=== PATIENT | female | born 1995 | race Caucasian/White ===

== ENCOUNTER 2022-08-10 12:59 | Outpatient (CLI) | payer OTHER, SELFPAY ==
--- NOTE | 2022-08-10 13:00 | CRLHL7_ITS ---
For Patients: As a result of the Cures Act, medical imaging exams and procedure reports are released immediately into your electronic medical record. You may view this report before your referring provider. If you have questions, please contact your health care provider. INDICATION: First trimester scan, establish dates. COMPARISON: None. TECHNIQUE: Real-time fernando-scale imaging of the pelvis was performed. FINDINGS: Sonographic imaging demonstrates a single living intrauterine gestation. The embryo demonstrates a regular cardiac rate measuring 169 beats per minute. The embryo`s crown-rump length measurement of 1.5 cm corresponds to a gestational age of 7 weeks 6 days with a sonographic due date of March 23, 2023. There is a normal-appearing yolk sac measuring 2.9 mm. There are no gross abnormalities noted within the embryo at this early state of development. The placenta has not yet developed. The gestational sac has a normal appearance and there is no evidence of a perigestational hemorrhage. The amount of fluid within the sac appears appropriate for gestational age. The cervix is closed. The myometrium appears normal. The ovaries are of normal size. The right ovary measures 4.6 x 2.3 x 2.9 cm. The left ovary measures 4.6 x 2.7 x 2.8 cm. Small corpus luteum cyst of on the left. There are no suspicious fluid collections noted in the cul-de-sac. IMPRESSION: Normal first trimester OB ultrasound exam. Gestational age calculated at 7 weeks 6 days with a sonographic due date of March 23, 2023. Dictated by Clifton Ray MD @ 08/10/2022 3:04:47 PM (Electronically Signed)
== END 2022-08-10 13:00 | disposition home or self-care (01) ==
PROVIDERS: Visit Provider Obstetrics & Gynecology
DX: Z34.91 Encounter for supervision of normal pregnancy, unspecified, first trimester (principal); Z3A.01 Less than 8 weeks gestation of pregnancy
CPT/HCPCS: 76817

== ENCOUNTER 2022-08-10 14:47 | Outpatient (CLI) | payer OTHER, SELFPAY ==
[2022-08-10 17:18] LABS: Creatinine* 0.6 mg/dL (0.5-1.5); Estimated Glomerular Filt Rate 127 ml/min
[2022-08-10 17:19] LABS: Alanine Aminotransferase* 20 U/L (4-35); Aspartate Amino Transferase* 26 U/L (12-35)
[2022-08-10 17:30] LABS: Total Protein Urine 21 mg/dL
[2022-08-10 17:31] LABS: Creatinine Urine 58.6 mg/dL
[2022-08-10 17:49] LABS: Hepatitis B Surface Antigen* Negative (Negative)
[2022-08-10 17:57] LABS: HIV 1/2/P24 Combo Screen* Negative (Negative)
[2022-08-10 18:06] LABS: Hepatitis C Virus Antibody* Negative (Negative)
[2022-08-10 18:50] LABS: Chlamydia DNA Amplified* NOT DETECTED (No Detected); GC DNA Amplified* NOT DETECTED (No Detected)
[2022-08-13 00:12] LABS: Varicella-Zoster Virus Ab, IgG 90.5 IV
[2022-08-13 00:19] LABS: Rubella Antibody IgG 14.9 IU/mL
[2022-08-13 01:38] LABS: Rapid Plasma Reagin (RPR) Non Reactive (Non Reactive)
== END 2022-08-10 14:48 | disposition home or self-care (01) ==
PROVIDERS: Visit Provider Obstetrics & Gynecology
DX: O16.1 Unspecified maternal hypertension, first trimester (principal); Z3A.01 Less than 8 weeks gestation of pregnancy
CPT/HCPCS: 82565; 82570; 84156; 84450; 84460; 86592; 86703; 86762; 86787; 86803; 86850; 86900; 86901; 87086; 87340; 87491; 87591

== ENCOUNTER 2022-10-07 13:29 | Outpatient (CLI) | payer OTHER, SELFPAY | END 2022-10-07 13:30 | disposition home or self-care (01) | LOC: NFLDREF 10-09 14:37 | PROVIDERS: Visit Provider Obstetrics & Gynecology | DX: O16.2 Unspecified maternal hypertension, second trimester (principal); E10.9 Type 1 diabetes mellitus without complications; Z3A.16 16 weeks gestation of pregnancy | CPT/HCPCS: 82570; 84156 ==

== ENCOUNTER 2022-12-29 12:50 | Outpatient (CLI) | payer OTHER, SELFPAY ==
--- NOTE | 2022-12-29 13:00 | CRLHL7_ITS ---
For Patients: As a result of the Century Cures Act, medical imaging exams and procedure reports are released immediately into your electronic medical record. You may view this report before your referring provider. If you have questions, please contact your health care provider. INDICATION: Pre-existing hypertension. TECHNIQUE: Transabdominal obstetrical ultrasound. FINDINGS: Single living intrauterine in vertex presentation. Anterior placenta. heart rate 139 beats per minute. Normal amniotic fluid. Single deepest pocket measurement 5.4 cm. Biparietal diameter 7 cm, 28 weeks 2 days, 47th percentile. Head circumference 26.2 cm, 28 weeks 4 days, 35th percentile. Abdominal circumference 24 cm, 28 weeks 2 days, 53rd percentile. Femur length 5.1 cm, 27 weeks 3 days, 19th percentile. Composite calculated ultrasound age 28 weeks 1 day with a sonographic due date of March 22, 2023. Estimated weight 1162 g which lies at the 38th percentile. The head to abdominal circumference ratio is normal at 1.09 (1.02-1.21). IMPRESSION: Single living intrauterine in vertex presentation with an anterior placenta. Composite calculated ultrasound age 28 weeks 1 day with a sonographic due date of March 22, 2023. Estimated weight lies at the 38th percentile. Dictated by Clifton Ray MD @ 12/29/2022 4:06:09 PM (Electronically Signed)
== END 2022-12-29 12:51 | disposition home or self-care (01) ==
LOC: US 12:51
PROVIDERS: Visit Provider Obstetrics & Gynecology
DX: O10.913 Unspecified pre-existing hypertension complicating pregnancy, third trimester (principal); Z3A.28 28 weeks gestation of pregnancy
CPT/HCPCS: 76816

== ENCOUNTER 2023-01-02 15:29 | Outpatient (CLI) | payer OTHER, SELFPAY ==
[2023-01-02 15:38] VITALS: PULSE 86; O2SAT 98
[2023-01-02 15:42] VITALS: BP 135/65; PULSE 85
[2023-01-02 15:43] VITALS: PULSE 84; O2SAT 98
[2023-01-02 15:48] VITALS: PULSE 87; O2SAT 96
[2023-01-02 16:24] LABS: Appearance Urine Clear (Clear); Bilirubin Urine Negative (Negative); Blood Urine Negative (Negative); Color Urine Yellow (Yellow); Glucose Urine Negative (Negative); Ketones Urine 1+ (Negative); Leukocyte Esterase Urine Negative (Negative); Nitrite Urine Negative (Negative); Protein Urine Negative (Negative); Urobilinogen Urine 0.2 (0.2-1.0)
[2023-01-02 16:40] LABS: Clue Cells No Clue Cells Seen (None Seen); Trichomonas No Trichomonas Seen (None Seen); Yeast No Yeast Seen (None Seen)
== END 2023-01-02 16:09 | disposition home or self-care (01) ==
LOC: OB OUT 15:29 → OB 15:29
PROVIDERS: Visit Provider Obstetrics & Gynecology
DX: O10.913 Unspecified pre-existing hypertension complicating pregnancy, third trimester (principal); Z3A.28 28 weeks gestation of pregnancy
CPT/HCPCS: 59025; 81003; 87086; 87210; 99213

== ENCOUNTER 2023-01-13 12:47 | Outpatient (CLI) | payer OTHER, SELFPAY | END 2023-01-13 12:48 | disposition home or self-care (01) | LOC: NFLDREF 01-14 07:06 | PROVIDERS: Visit Provider Obstetrics & Gynecology | DX: O10.913 Unspecified pre-existing hypertension complicating pregnancy, third trimester (principal); O99.013 Anemia complicating pregnancy, third trimester; D50.9 Iron deficiency anemia, unspecified; Z3A.30 30 weeks gestation of pregnancy | CPT/HCPCS: 82565; 82570; 84156; 84450; 84460; 84520 ==

== ENCOUNTER 2023-01-29 13:01 | Outpatient (CLI) | payer OTHER, SELFPAY ==
--- NOTE | 2023-01-29 13:00 | CRLHL7_ITS ---
For Patients: As a result of the Century Cures Act, medical imaging exams and procedure reports are released immediately into your electronic medical record. You may view this report before your referring provider. If you have questions, please contact your health care provider. INDICATION: Pre-existing hypertension TECHNIQUE: Real time fernando scale imaging of the fetus was performed. COMPARISON: 12/29/2022 FINDINGS: Sonographic imaging demonstrates a single living intrauterine gestation. Fetus demonstrates a regular cardiac rate of 159 beats per minute. Fetus has a vertex position. The placenta lies anteriorly. Amniotic fluid volume appears normal and there is a single deepest pocket of 6.5 cm. The estimated weight is 2182gm which lies at the 71st %. On the prior OB ultrasound dated 12/29/2022 the estimated weight was at the 38th percentile. BPD 37th percentile. HC 32nd percentile. AC greater than 97th percentile. FL 8th percentile. The fetus was active and demonstrated normal breathing movements. There was normal flexion and extension of the trunk and extremities. IMPRESSION: Normal biophysical profile score 8/8. Sonographic gestational age 32 weeks 6 days and sonographic due date 03/20/2023. Good correlation with dates. Normal interval growth. Estimated weight 71st percentile. Abdominal circumference greater than 97th percentile. Dictated by Fahad Zayas MD @ 01/29/2023 2:42:46 PM (Electronically Signed)
== END 2023-01-29 13:02 | disposition home or self-care (01) ==
LOC: US 13:01
PROVIDERS: Visit Provider Obstetrics & Gynecology
DX: O10.913 Unspecified pre-existing hypertension complicating pregnancy, third trimester (principal); Z3A.32 32 weeks gestation of pregnancy
CPT/HCPCS: 76816; 76819

== ENCOUNTER 2023-01-29 14:33 | Outpatient (CLI) | payer OTHER, SELFPAY | END 2023-01-29 14:34 | disposition home or self-care (01) | PROVIDERS: Visit Provider Obstetrics & Gynecology | DX: Z34.93 Encounter for supervision of normal pregnancy, unspecified, third trimester (principal); Z3A.32 32 weeks gestation of pregnancy | CPT/HCPCS: 82565; 82570; 84156; 84450; 84460; 84520 ==

== ENCOUNTER 2023-02-03 23:15 | Outpatient (CLI) | payer OTHER, SELFPAY ==
[2023-02-03 23:28] VITALS: BP 146/72; PULSE 76
[2023-02-03 23:55] LABS: Clue Cells <20% Clue Cells Seen (None Seen); Trichomonas No Trichomonas Seen (None Seen); Yeast No Yeast Seen (None Seen)
[2023-02-04 00:03] LABS: Amnisure Rom* Negative
--- NOTE | 2023-02-04 00:54 | PC.OBNST ---
NST Note NST Note Start: 02/03/23 23:32 Freq: ONCE Status: Active Protocol: Document 02/04/23 00:52 AM (Rec: 02/04/23 00:54 AM [id number]) NST Note 1 Para (# of births) 0 EDC 03/23/23 Gestational Age In Weeks & Days 33 Weeks & 2 Days High Risk Factors High Blood Pressure - Preexisting,Diabetes - Preexisting Type I Insulin Patient Presented with Complaint(s) of Leaking fluid Reactive Yes Appropriate for Gestational Age Yes RN Kiko RNC Date 02/04/23 Reactive Yes Appropriate for Gestational Age Yes RN Amanda RN Date 02/04/23 OB NST charge Yes Complete NST Note via Write Note Yes The provider's electronic signature indicates the NST is reactive/appropriate for gestational age. *Note to provider: If an addendum is required, open the patient's chart and click on the note under the Nurse/Allied Health tab.
== END 2023-02-04 00:40 | disposition home or self-care (01) ==
LOC: OB OUT 23:15 → OB 23:16
PROVIDERS: Visit Provider Obstetrics & Gynecology
DX: Z34.93 Encounter for supervision of normal pregnancy, unspecified, third trimester (principal); Z3A.33 33 weeks gestation of pregnancy
CPT/HCPCS: 59025; 84112; 87210; 99213

== ENCOUNTER 2023-02-04 13:09 | Outpatient (CLI) | payer OTHER, SELFPAY ==
--- NOTE | 2023-02-04 13:00 | CRLHL7_ITS ---
For Patients: As a result of the Cures Act, medical imaging exams and procedure reports are released immediately into your electronic medical record. You may view this report before your referring provider. If you have questions, please contact your health care provider. BIOPHYSICAL PROFILE SCORE 02/04/2023 INDICATION: Pre-existing HTN and type I diabetes. FINDINGS: Total Score: 8/8. Gross Body Movements: 2. Tone: 2. Respiratory Activity: 2. Amniotic Fluid SDP: 2. IMPRESSION: Biophysical profile score 88. Trina Kwok M.D. Diagnostic/Breast Radiologist [email or web address]/[email or web address] / DW/Dictated by: Trina Kwok MD @ 02/06/2023 12:21:00 PM (Electronically Signed)
== END 2023-02-04 13:10 | disposition home or self-care (01) ==
LOC: US 13:09
PROVIDERS: Visit Provider Obstetrics & Gynecology
DX: O10.919 Unspecified pre-existing hypertension complicating pregnancy, unspecified trimester (principal)
CPT/HCPCS: 76819

== ENCOUNTER 2023-02-04 13:26 | Outpatient (CLI) | payer OTHER, SELFPAY | END 2023-02-04 13:27 | disposition home or self-care (01) | LOC: NFLDREF 02-06 12:46 | PROVIDERS: Visit Provider Obstetrics & Gynecology | DX: R80.9 Proteinuria, unspecified (principal) | CPT/HCPCS: 82570; 84156 ==

== ENCOUNTER 2023-02-19 12:55 | Outpatient (CLI) | payer OTHER, SELFPAY ==
--- NOTE | 2023-02-19 13:00 | CRLHL7_ITS ---
For Patients: As a result of the Century Cures Act, medical imaging exams and procedure reports are released immediately into your electronic medical record. You may view this report before your referring provider. If you have questions, please contact your health care provider. INDICATION: HTN, TYPE 1 DIABETES COMPARISON: 02/04/2023 TECHNIQUE: Real time fernando scale imaging of the fetus was performed. Without non-stress testing. FINDINGS: Sonographic imaging demonstrates a single living intrauterine gestation. Fetus demonstrates a regular cardiac rate of 144 beats per minute. Fetus has a vertex position. The amniotic fluid volume appears normal and there is a single deepest pocket measurement of 8.5 cm. TESHA 12.4 cm. The fetus was active and demonstrated normal breathing movements. There was normal flexion and extension of the trunk and extremities. IMPRESSION: Normal biophysical profile score of 8 out of 8. Dictated by Fahad Zayas MD @ 02/19/2023 2:24:12 PM (Electronically Signed)
== END 2023-02-19 12:56 | disposition home or self-care (01) ==
LOC: US 12:55
PROVIDERS: Visit Provider Obstetrics & Gynecology
DX: O10.913 Unspecified pre-existing hypertension complicating pregnancy, third trimester (principal); Z3A.35 35 weeks gestation of pregnancy
CPT/HCPCS: 76819

== ENCOUNTER 2023-02-19 13:46 | Outpatient (CLI) | payer OTHER, SELFPAY | END 2023-02-19 13:47 | disposition home or self-care (01) | LOC: NFLDREF 02-20 12:55 | PROVIDERS: Visit Provider Obstetrics & Gynecology | DX: O10.913 Unspecified pre-existing hypertension complicating pregnancy, third trimester (principal); Z3A.35 35 weeks gestation of pregnancy | CPT/HCPCS: 82565; 82570; 84156; 84450; 84460; 84520; 86592; 87081; 87653 ==

== ENCOUNTER 2023-02-24 12:56 | Outpatient (CLI) | payer OTHER, SELFPAY | END 2023-02-24 12:57 | disposition home or self-care (01) | PROVIDERS: Visit Provider Obstetrics & Gynecology | DX: O10.919 Unspecified pre-existing hypertension complicating pregnancy, unspecified trimester (principal); O24.419 Gestational diabetes mellitus in pregnancy, unspecified control; O98.519 Other viral diseases complicating pregnancy, unspecified trimester; U07.1 COVID-19; Z3A.00 Weeks of gestation of pregnancy not specified | CPT/HCPCS: 82565; 84450; 84460; 84520 ==

== ENCOUNTER 2023-02-24 13:41 | Outpatient (CLI) | payer OTHER, SELFPAY ==
--- NOTE | 2023-02-24 14:00 | CRLHL7_ITS ---
For Patients: As a result of the Century Cures Act, medical imaging exams and procedure reports are released immediately into your electronic medical record. You may view this report before your referring provider. If you have questions, please contact your health care provider. INDICATION: COVID positive, type 1 diabetes, pre-existing hypertension. COMPARISON: OB ultrasound 02/19/2023. TECHNIQUE: Ultrasound OB pelvis biophysical profile. Real time fernando scale imaging of the fetus was performed without non-stress testing. FINDINGS: Sonographic imaging demonstrates a single living intrauterine gestation. The fetus demonstrates a regular cardiac rate of 152 beats per minute. The fetus has a cephalic orientation. The placenta lies anteriorly. Amniotic fluid volume appears normal with single deepest pocket measuring 4.8 cm and the amniotic fluid index measuring 11.3 cm (2/2). The fetus was active (2/2). There was normal flexion and extension of the trunk and extremities (2/2). The fetus demonstrated normal breathing movements (2/2). IMPRESSION: Normal biophysical profile score 8 out of 8. Dictated by Daniella Matthew MD @ 02/24/2023 10:53:46 PM (Electronically Signed)
== END 2023-02-24 13:42 | disposition home or self-care (01) ==
PROVIDERS: Visit Provider Obstetrics & Gynecology
DX: O10.919 Unspecified pre-existing hypertension complicating pregnancy, unspecified trimester (principal); E10.9 Type 1 diabetes mellitus without complications; O98.513 Other viral diseases complicating pregnancy, third trimester; Z3A.36 36 weeks gestation of pregnancy
CPT/HCPCS: 76819

== ENCOUNTER 2023-03-01 15:54 | Inpatient (IN) | payer OTHER, SELFPAY ==
[2023-03-01] VITALS (9 sets, daily range): BP systolic 133–169; BP diastolic 60–78; PULSE 69–96; RESP 18; TEMP 36.8–37.3; O2SAT 99–100; BMI 35.5
[2023-03-01] MEDS: miSOPROStoL 25 MCG/0.25 TABLET VAGINAL (17:23)
--- NOTE | 2023-03-01 18:10 | P.LDBA_ITS ---
Subjective History of Present Illness Time Seen by Provider: 18:10 Date Seen: 03/01/23 Narrative: Patient is being admitted to Labor and Delivery for scheduled IOL due to chronic HTN difficult to control with multiple medication adjustments. She also had type I diabetes mellitus. She is a 27 year old at 36.6 weeks gestation. Her full history and physical was dictated by Dr. Willingham on 02/24/2023. Please see this for details. Specific Issues/Plans Spouse: Alan. Baby: Girl!. 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 ZION 03/23/2023 by IUI/conception date & first tri US 1. Type I DM * A1C 6.7 at [facility] * Qtrimester HgbA1C * 2nd trimester 10/07/22: Hgb A1C = 6.0% * Hb A1C = 6.1% on 01/13/23 * Managed by endocrinology with insulin pump and metformin. * MFM referral ordered on 09/07/22 * LVL 2 USN and echo scheduled with [facility] (see #3). * Monthly EFW starting at 28 weeks. * 01/29/2023: Cephalic, SDP 6.5 cm, EFW 71%, AC greater than 97%. * Twice weekly BPP starting at 32 weeks recommended. 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 2. Chronic hypertension with proteinuria * Patient has home blood pressure cuff, encouraged to check BID. * Previously on Enapril, off meds for a couple years * BP at 1st visit: 196/80 * Baseline preeclampsia labs: Plts 334, AST 26, ALT 20, urine P/C 0.3, * 16wks: 24 urine protein 10/08/22: 333.8mg * Nephrology referral placed 10/08/22: Patient declined (10/20/22) * Baby ASA daily * If BP not well controlled: twice weekly testing w/ twice wkly BPP & weekly pre-e labs start at 28wks. (Pt is declining increased surveillance until 32 weeks) * 09/07/2022: Labetalol 100mg: take 1/2 tab (50mg) BID, increased to 100 mg b.i.d. on 10/07/2022. Increased to 200 mg b.i.d. on 11/11/2022. * Home cuff calibrated on 10/07/2022. * Labetalol increased to 400 mg b.i.d. on 12/14, to 600 mg BID on 12/29/22. * US 28 weeks: cephalic, SDP 5.4 cm, FHR 139, EFW 38%, AC 53% * Adding Nifedipine 30 XL QD on 02/19/23 3. LVL 2 USN and consultation ealth/[facility] 10/20/22 * Echogenic bowel noted: Patient declined aneuploidy screening, antibody testing for CMV and screening for cystic fibrosis. * Recommended baseline EKG at her 20wk visit: Normal on 11/11/2022. * Titrate Labetalol to keep BP <140/90: [facility] recommended weekly visits for BP checks to titrate labetalol then every 2 weeks until 32 weeks then weekly until delivery: Patient declined. * echo scheduled at approximately 21wks: Patient canceled and did not reschedule. * 11/11/22: F/U from Lvl 2 UNS to assess anatomy suboptimally visualized: BR, EFW: 388gm = 34%. SDP 5.1cm. 4. 10/22/2022: Patient contacted triage through portal requesting hemoglobin due to extreme fatigue * TSH with reflex free T4 and CBC without diff ordered * 10/23/22 TSH: 1.090 * 10/23/22: hgb 10.9: recommended starting iron sulfate QOD. 5. Covid postitive 02/22/23. s/s started 02/19/23. Out of quarantine 03/01/23 OB - Problem Based A/P Additional Plan (1) Proteinuria: Problem details: 333.8 mg protein in 24 hour urine collection at 16 weeks gestation Status: Acute (2) Chronic hypertension affecting : Status: Acute (3) Type 1 diabetes mellitus: Problem details: Managed with an insulin pump and metformin by endocrinology Status: Acute Delivery/Labor/Induction Plan Plan: induction Induction method: per misoprostol protocol OB Exam Physical Exam Vital signs: Pulse BP Pulse Ox 82 148/77 H 99 03/01/23 16:45 03/01/23 16:45 03/01/23 16:24 Narrative: Physical exam: General: No acute distress Psych: Alert and oriented x3, full affect HEENT: Normocephalic, atraumatic Lungs: Unlabored breathing Neuro: No focal deficit. Mentating appropriately Abdomen: Gravid. Soft, nontender. No guarding or rebound. Pelvic exam: On my SVE: ft/50/ballotable, medium, posterior. Dry perineum.
--- NOTE | 2023-03-01 18:10 | W.PM.LDBA ---
Subjective History of Present Illness Time Seen by Provider: 18:10 Date Seen: 03/01/23 Narrative: Patient is being admitted to Labor and Delivery for scheduled IOL due to chronic HTN difficult to control with multiple medication adjustments. She also had type I diabetes mellitus. She is a 27 year old at 36.6 weeks gestation. Her full history and physical was dictated by Dr. Willingham on 02/24/2023. Please see this for details. Specific Issues/Plans Spouse: Alan. Baby: Girl!. 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 ZION 03/23/2023 by IUI/conception date & first tri US 1. Type I DM A1C 6.7 at [facility] Qtrimester HgbA1C 2nd trimester 10/07/22: Hgb A1C = 6.0% Hb A1C = 6.1% on 01/13/23 Managed by endocrinology with insulin pump and metformin. MFM referral ordered on 09/07/22 LVL 2 USN and echo scheduled with [facility] (see #3). Monthly EFW starting at 28 weeks. 01/29/2023: Cephalic, SDP 6.5 cm, EFW 71%, AC greater than 97%. Twice weekly BPP starting at 32 weeks recommended. 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 2. Chronic hypertension with proteinuria Patient has home blood pressure cuff, encouraged to check BID. Previously on Enapril, off meds for a couple years BP at 1st visit: 196/80 Baseline preeclampsia labs: Plts 334, AST 26, ALT 20, urine P/C 0.3, 16wks: 24 urine protein 10/08/22: 333.8mg Nephrology referral placed 10/08/22: Patient declined (10/20/22) Baby ASA daily If BP not well controlled: twice weekly testing w/ twice wkly BPP & weekly pre-e labs start at 28wks. (Pt is declining increased surveillance until 32 weeks) 09/07/2022: Labetalol 100mg: take 1/2 tab (50mg) BID, increased to 100 mg b.i.d. on 10/07/2022. Increased to 200 mg b.i.d. on 11/11/2022. Home cuff calibrated on 10/07/2022. Labetalol increased to 400 mg b.i.d. on 12/14, to 600 mg BID on 12/29/22. US 28 weeks: cephalic, SDP 5.4 cm, FHR 139, EFW 38%, AC 53% Adding Nifedipine 30 XL QD on 02/19/23 3. LVL 2 USN and consultation ealth/[facility] 10/20/22 Echogenic bowel noted: Patient declined aneuploidy screening, antibody testing for CMV and screening for cystic fibrosis. Recommended baseline EKG at her 20wk visit: Normal on 11/11/2022. Titrate Labetalol to keep BP <140/90: [facility] recommended weekly visits for BP checks to titrate labetalol then every 2 weeks until 32 weeks then weekly until delivery: Patient declined. echo scheduled at approximately 21wks: Patient canceled and did not reschedule. 11/11/22: F/U from Lvl 2 UNS to assess anatomy suboptimally visualized: BR, EFW: 388gm = 34%. SDP 5.1cm. 4. 10/22/2022: Patient contacted triage through portal requesting hemoglobin due to extreme fatigue TSH with reflex free T4 and CBC without diff ordered 10/23/22 TSH: 1.090 10/23/22: hgb 10.9: recommended starting iron sulfate QOD. 5. Covid postitive 02/22/23. s/s started 02/19/23. Out of quarantine 03/01/23 OB - Problem Based A/P Additional Plan (1) Proteinuria: Problem details: 333.8 mg protein in 24 hour urine collection at 16 weeks gestation Status: Acute (2) Chronic hypertension affecting : Status: Acute (3) Type 1 diabetes mellitus: Problem details: Managed with an insulin pump and metformin by endocrinology Status: Acute Delivery/Labor/Induction Plan Plan: induction Induction method: per misoprostol protocol OB Exam Physical Exam Vital signs: Pulse BP Pulse Ox 82 148/77 H 99 03/01/23 16:45 03/01/23 16:45 03/01/23 16:24 Narrative: Physical exam: General: No acute distress Psych: Alert and oriented x3, full affect HEENT: Normocephalic, atraumatic Lungs: Unlabored breathing Neuro: No focal deficit. Mentating appropriately Abdomen: Gravid. Soft, nontender. No guarding or rebound. Pelvic exam: On my SVE: ft/50/ballotable, medium, posterior. Dry perineum.
[2023-03-01 18:46] LABS: Hematocrit 33.5 % (33.0-51.0); Hemoglobin* 10.6 gm/dL (12.0-16.0); Mean Corpuscular Volume 75 fL (80-100); Red Blood Count 4.49 m/uL (4.00-5.20)
[2023-03-01 18:47] LABS: Eosinophils Percent Auto 0.1 % (0.0-7.0); Lymphocytes Percent Auto 16.5 % (20-44); Mean Corpuscular HGB Conc 32 gm/dL (32-36); Mean Corpuscular Hemoglobin 24 pg (26-34); Neutrophils Percent Auto 75.6 % (42.0-72.0); Platelet Count* 255 K/uL (140-440)
[2023-03-01 18:48] LABS: Slide Review Reflex No
[2023-03-01] MEDS: LACTATED RINGERS 1000 ML 1,000 ML 500 ML IV (21:25)
[2023-03-01] MEDS: LACTATED RINGERS 1000 ML 1,000 ML 125 ML IV (22:43)
[2023-03-02] VITALS (20 sets, daily range): BP systolic 104–168; BP diastolic 56–85; PULSE 64–93; RESP 16–18; TEMP 36.6–37.3; O2SAT 97–99
[2023-03-02] MEDS: miSOPROStoL 25 MCG/0.25 TABLET VAGINAL ×2 (00:28→04:22)
[2023-03-02] MEDS: MORPHINE 10 MG/ML inj IM (02:38)
[2023-03-02] MEDS: LACTATED RINGERS 1000 ML 1,000 ML 525 ML IV (04:06)
[2023-03-02] MEDS: LACTATED RINGERS 1000 ML 1,000 ML 1200 ML IV (07:06)
[2023-03-02] MEDS: LIDOCAINE 1 % PF 30 ML INJECTION (08:21)
[2023-03-02] MEDS: OXYTOCIN 30 unit/500 ML in NS 30 UNIT/500 ML BAG 300 UNIT IVPB (08:23)
--- NOTE | 2023-03-02 09:18 | W.PM.VAGD1_ITS ---
Procedure Delivery date: 03/02/23 Procedure Done: [employer] Procedure Details: The patient is a 27 year-old G 1 P 0 woman admitted on 03/01/2023 at 36 Weeks, 6 Days gestation for cervical ripening prior to anticipated induction of labor the following day.? Cervical exam on admission was ft/50/ballotable, medium, posterior with membranes intact in vertex presentation.? SROM occurred at 6:30 a.m. with clear fluid. ? Labor Analgesia:? None ? Pitocin:? No ? Labor onset:? 6:30 a.m. ? Complete:? 7:45 a.m. ? Pushing:? 7:45 a.m. ? heart tones during second stage were notable for recurrent deep variable decelerations. Sue was initially in hands and knees position. She was given oxygen by face mask and her position was changed twice, with no in during improvement in heart tones. Pelvic exam at this time revealed vertex to be at the introitus with pushing. OA presentation was noted on vaginal exam. Her most recent ultrasound gave a normal EFW. I discussed the use of vacuum assisted vaginal delivery to Sue, along with episiotomy, as ways to precipitate vaginal delivery. Verbal consent was given. Her bladder was drained of a scant amount of urine via straight catheterization. The kiwi firm cup vacuum was placed anteriorly at the flexion point. The vacuum was not well applied on the 1st placement, and little to no actual traction was obtained. It was then repositioned with a good seal. Just before the 2nd placement, I performed an episiotomy with scalpel in a right mediolateral orientation. With her next push, I was prepared to apply traction on the vacuum, but she delivered infant had without any traction after the episiotomy. Vacuum cup suction was released. There was nuchal cord x1, which was reduced. Infant then delivered in REGLA presentation and was passed maternal abdomen. Cord was doubly clamped and cut. Infant was passed off to attending licensed occupational therapy assistant. Time of was 8:20 a.m.. was female, with Apgars of 4, 7 and 8, weight 6 lb, 7 oz. ? Placenta delivered spontaneously and complete at 8:33 a.m. with a 3 vessel cord. ? Mother and infant were stable after delivery. ? Lacerations:? Second-degree perineal laceration/right mediolateral episiotomy without extension, in addition to a briskly bleeding but small and shallow laceration along the left periurethral region. These were infiltrated with a total of 20 mL of 1% lidocaine. The second-degree perineal laceration was repaired with 2-0 Vicryl in the usual fashion. The periurethral laceration was repaired with 2 interrupted sutures of 3-0 Vicryl. Vaginal packing was placed given the continued oozing of the laceration sites. ? Blood loss: 1128 mL. Blood loss measurement type: QBL ? Sponge and needles counts are correct.
[2023-03-02 09:41] LABS: Basophils Percent Auto 0.2 % (0.0-3.0); Hemoglobin* 10.1 gm/dL (12.0-16.0); Immature Granulocytes Pct Auto 0.2 %; Lymphocytes Percent Auto 4.9 % (20-44); Mean Corpuscular HGB Conc 32 gm/dL (32-36); Mean Corpuscular Hemoglobin 23 pg (26-34); Mean Corpuscular Volume 74 fL (80-100); Monocytes Percent Auto 4.1 % (0.0-11.0); Neutrophils Percent Auto 90.6 % (42.0-72.0); Platelet Count* 258 K/uL (140-440); RDW Coefficient of Variation % 14.9 % (11.5-15.5); Red Blood Count 4.34 m/uL (4.00-5.20); White Blood Count* 19.25 K/uL (4.50-11.00)
[2023-03-02] MEDS: LABETALOL HCL 100 MG TABLET 600 MG PO (09:45)
[2023-03-02 09:47] LABS: Slide Review Reflex No
[2023-03-02 10:26] LABS: INR 1.01 (0.91-1.10); Prothrombin Time 13.9 Seconds
[2023-03-02 10:27] LABS: Fibrinogen* 497 mg/dL (200-450); Partial Thromboplastin Time* 27 Seconds (23-33)
--- NOTE | 2023-03-02 12:32 | PM.OBPNVD1 ---
OB - PN:Subj Subjective Time Seen by Provider: 12:20 Date Seen: 03/02/23 Interval history: I left vaginal packing in place to provide pressure on perineal and periurethral lacerations that I repaired. Patient voided, and the packing did not come out. I then removed the packing. The packing was saturated, and there was an abundant amount of lochia just behind this in the vaginal vault. However, further examination revealed that the laceration sites were intact and hemostatic. The perineum appeared bruised, and I recommended ice pack. CBC and coags were stable. At 9:23 a.m., hemoglobin is 10.1, down from 10.6 yesterday evening. Platelets 258. INR and APTT normal. Fibrinogen 492. OB - PN: Obj Exam Physical Exam: Vital signs: Temp Pulse Resp BP Pulse Ox 98.9 F 78 18 134/72 100 03/02/23 06:30 03/02/23 10:28 03/02/23 06:30 03/02/23 10:28 03/01/23 19:16 OB - PN: Obj Data Labs Labs: Laboratory Results - last 24 hr 03/01/23 03/02/23 17:50 09:23 WBC 10.30 19.25 H RBC 4.49 4.34 Hgb 10.6 L 10.1 L Hct 33.5 32.0 L MCV 75 L 74 L MCH 24 L 23 L MCHC 32 32 RDW Coeff of Yuri 14.9 Plt Count 255 258 Neut % (Auto) 75.6 H 90.6 H Lymph % (Auto) 16.5 L 4.9 L [place] % (Auto) 6.0 4.1 Eos % (Auto) 0.1 0.0 Baso % (Auto) 0.0 0.2 Neut # (Auto) 7.80 H 17.40 H Lymph # (Auto) 1.70 0.90 [place] # (Auto) 0.60 0.80 Eos # (Auto) 0.00 0.00 Baso # (Auto) 0.00 0.00 Abs Immat Gran (auto) 0.00 Imm/Tot Granulo (auto) 0.2 INR 1.01 APTT 27 Fibrinogen 497 H Blood Type O Positive Antibody Screen NEGATIVE OB - PN: A/P Delivery Assessment and Plan (1) Proteinuria: Problem details: 333.8 mg protein in 24 hour urine collection at 16 weeks gestation Status: Acute (2) Chronic hypertension affecting : Status: Acute (3) Type 1 diabetes mellitus: Problem details: Managed with an insulin pump and metformin by endocrinology Status: Acute Plan Plan: routine care Comments: Hb in AM
[2023-03-02] MEDS: ACETAMINOPHEN 500 MG TABLET 1000 MG PO ×2 (13:10→18:56)
[2023-03-02 16:10] LABS: Basophils Percent Auto 0.1 % (0.0-3.0); Hematocrit 27.5 % (33.0-51.0); Hemoglobin* 8.7 gm/dL (12.0-16.0); Immature Granulocytes Pct Auto 0.1 %; Lymphocytes Percent Auto 7.1 % (20-44); Mean Corpuscular HGB Conc 32 gm/dL (32-36); Mean Corpuscular Hemoglobin 24 pg (26-34); Mean Corpuscular Volume 74 fL (80-100); Monocytes Percent Auto 3.9 % (0.0-11.0); Neutrophils Percent Auto 88.8 % (42.0-72.0); Platelet Count* 252 K/uL (140-440); RDW Coefficient of Variation % 15.2 % (11.5-15.5); Red Blood Count 3.71 m/uL (4.00-5.20); White Blood Count* 20.76 K/uL (4.50-11.00)
[2023-03-02 16:11] LABS: Slide Review Reflex No
--- NOTE | 2023-03-02 18:40 | PC.NURSE ---
Pt using own insulin pump and given orders based on her endocrinologists recomenedations. Per pt, orders for post- Medication management are as followed. Pt using Humalog U200 insulin. Basal rate 1 unit/hr with a correction of 1 unit of insulin per [address] Garibay notified of endocrinologists recommendation, no new orders.
--- NOTE | 2023-03-02 18:43 | PC.NURSE ---
At approximately 1430, pt reporting that her blood sugar is at 186. Pt stated, I'm working on getting it down and I can manage it. I'm really not worried about it. RN recommended to record home insulin Pump use on [facility] approved form. Pt stated, I am going to decline doing that, because I'm really not concerned. I switched back to my orders and I'll figure it out. RN notified Dr Garibay that patient would like us to not give her direction of use of insulin pump and will not record her insulin use while in hospital.
[2023-03-02] MEDS: METFORMIN ER 500 MG 1000 MG PO (18:51)
[2023-03-03] VITALS (10 sets, daily range): BP systolic 109–126; BP diastolic 66–81; PULSE 85–98; RESP 14–18; TEMP 36.3–37; O2SAT 97–98
[2023-03-03] MEDS: ACETAMINOPHEN 500 MG TABLET 1000 MG PO ×2 (04:27→14:04)
[2023-03-03 07:00] LABS: Hemoglobin* 7.6 gm/dL (12.0-16.0)
[2023-03-03] MEDS: IBUPROFEN 600 MG TABLET PO ×2 (09:39→17:41)
[2023-03-03] MEDS: LABETALOL HCL 100 MG TABLET 300 MG PO ×2 (09:40→20:45)
[2023-03-03] MEDS: ENALAPRIL MALEATE 10 MG TABLET 5 MG PO (09:43)
[2023-03-03] MEDS: METFORMIN ER 500 MG 1000 MG PO ×2 (09:44→18:15)
--- NOTE | 2023-03-03 11:10 | PM.OBPNVD1 ---
OB - PN:Subj Subjective Time Seen by Provider: 07:30 Date Seen: 03/03/23 Interval history: The patient feels regular.?She can feel her hemoglobin being low, she is feeling fatigued, a bit lightheaded last night. Hemoglobin this morning low at 7.6mg/dL. The pain is well controlled with current medications.?Urinary output is adequate and she is voiding without difficulty.? Has a good appetite, is tolerating a general diet, is passing flatus, and has not had a bowel movement.? Has small amount of rubra lochia.? She is ambulating okay, but fatigued and a bit lightheaded. She is but states that baby has not been staying latched for too long. Blood pressures have been normal, not severely elevated. 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 States that BS overnight where more on the lower side, she has kept adjusting her insulin levels. Patient prefers to move with blood transfusion. OB - PN: Obj Exam Physical Exam: Vital signs: Temp Pulse Resp BP Pulse Ox O2 Del Method 98.3 F 85 16 113/74 97 Room Air 03/03/23 10:42 03/03/23 10:42 03/03/23 10:42 03/03/23 10:42 03/03/23 10:42 03/02/23 23:51 Narrative: VITAL SIGNS: As noted above. GENERAL APPEARANCE: Alert, cooperative female in no acute distress. MOOD & AFFECT: Normal. ABDOMEN: Soft, non-distended and appropriately tender, uterus well contracted at the umbilicus. : Small amount of lochia. EXTREMITIES: Nonedematous. Well perfused. Nontender. OB - PN: Obj Data Labs Labs: Laboratory Results - last 24 hr 03/01/23 03/02/23 03/03/23 17:50 16:05 06:36 WBC 20.76 H RBC 3.71 L Hgb 8.7 L 7.6 L* Hct 27.5 L MCV 74 L MCH 24 L MCHC 32 RDW Coeff of Yuri 15.2 Plt Count 252 Neut % (Auto) 88.8 H Lymph % (Auto) 7.1 L [place] % (Auto) 3.9 Eos % (Auto) 0.0 Baso % (Auto) 0.1 Neut # (Auto) 18.40 H Lymph # (Auto) 1.50 [place] # (Auto) 0.80 Eos # (Auto) 0.00 Baso # (Auto) 0.00 Abs Immat Gran (auto) 0.00 Imm/Tot Granulo (auto) 0.1 Blood Type O Positive Antibody Screen NEGATIVE Crossmatch (AHG) See Detail OB - PN: A/P Delivery Assessment and Plan (1) Chronic hypertension affecting : Status: Acute Assessment and Plan: Blood pressure is under control, we will plan to start tapering down labetalol. Will decrease to labetalol 300 mg twice a day. We will start enalapril 5 mg daily. Continue close monitoring of vital signs. (2) Type 1 diabetes mellitus: Problem details: Managed with an insulin pump and metformin by endocrinology Status: Acute Assessment and Plan: Continue close observation and insulin titration as per endocrinology recommendations. (3) Iron deficiency anemia: Status: Acute Assessment and Plan: Symptomatic anemia, hemoglobin this morning 7.6 mg/dL. Patient agrees to blood transfusion, will transfuse 1 unit. Will plan to repeat hemoglobin tomorrow morning. Plan Plan: routine care
--- NOTE | 2023-03-03 18:37 | PC.NURSE ---
RN informed pt of collecting intake and output. Pt declined. RN informed pt of reasoning for collection of intake and output and signs to be aware of for fluid retention.
[2023-03-04] VITALS (10 sets, daily range): BP systolic 113–144; BP diastolic 67–86; PULSE 78–92; RESP 16–18; TEMP 36.6–37.1; O2SAT 96–98
[2023-03-04] MEDS: ACETAMINOPHEN 500 MG TABLET 1000 MG PO ×4 (01:57→22:53)
[2023-03-04 06:39] LABS: Hemoglobin* 7.6 gm/dL (12.0-16.0)
[2023-03-04] MEDS: METFORMIN ER 500 MG 1000 MG PO ×2 (08:17→18:27)
[2023-03-04] MEDS: DOCUSATE SODIUM 100 MG CAPSULE PO (10:57)
[2023-03-04] MEDS: LABETALOL HCL 100 MG TABLET 300 MG PO ×2 (10:57→20:49)
[2023-03-04] MEDS: ENALAPRIL MALEATE 10 MG TABLET 5 MG PO (11:00)
--- NOTE | 2023-03-04 12:24 | PM.OBPNVD1 ---
OB - PN:Subj Subjective Date Seen: 03/04/23 Interval history: Patient received 1 unit of packed red blood cells in transfusion yesterday and felt her symptoms improved afterwards, however he hemoglobin this morning is again 7.6. She also feels that her symptoms have slightly worsened and after discussion of the risks and benefits would like to proceed with a 2nd unit of red blood cell transfusion. Her pain is well controlled with current medications.?Urinary output is adequate and she is voiding without difficulty.? Has a good appetite, is tolerating a general diet, is passing flatus, and has had a bowel movement.?She is ambulating okay, but does feel some dizziness. She is but states that baby has not been staying latched for too long. Blood pressures have been normal range. No headache, blurriness or spots in vision, upper abdominal pain. After adjustment yesterday blood sugars were slightly higher but she is continuing to improve her control . OB - PN: Obj Exam Physical Exam: Vital signs: Temp Pulse Resp BP Pulse Ox O2 Del Method 98.1 F 92 18 128/85 96 Room Air 03/04/23 04:11 03/04/23 08:22 03/04/23 08:22 03/04/23 08:22 03/04/23 08:22 03/04/23 08:22 Constitutional: Constitutional: no acute distress Comments: Pale Routine Cardiovascular Exam: Cardiovascular: Present RRR Routine Abdominal Exam: Abdominal: Present distended and soft; Absent rebound or tenderness Fundus: Present firm Routine Extremities Exam: Extremities: Present pedal edema OB - PN: Obj Data Labs Labs: Laboratory Results - last 24 hr 03/01/23 03/04/23 17:50 06:05 Hgb 7.6 L* Crossmatch (AHG) See Detail OB - PN: A/P Delivery Assessment and Plan (1) Chronic hypertension affecting : Problem details: Blood pressures in normal range Status: Acute Assessment and Plan: Continue labetalol 300 mg twice daily and enalapril 5 mg daily (2) Type 1 diabetes mellitus: Problem details: Managed with an insulin pump and metformin by endocrinology Status: Acute (3) Iron deficiency anemia: Problem details: Secondary to hemorrhage. Status post 1 unit red blood cells, no change in hemoglobin over 24 hours, likely fluid shifts. Patient continues to feel symptomatic Status: Acute Assessment and Plan: Another 1 unit red blood cell transfusion (4) hemorrhage: Problem details: Resolved with uterotonics medications Status: Acute Plan day: 2 Plan: routine care Comments: Discharge home tomorrow due to persistent anemia requiring red blood cell transfusion and observation
[2023-03-04] MEDS: IBUPROFEN 600 MG TABLET PO (17:09)
[2023-03-05] MEDS: ACETAMINOPHEN 500 MG TABLET 1000 MG PO ×2 (05:57→13:19)
[2023-03-05 06:46] VITALS: BP 118/78; PULSE 78; RESP 16; TEMP 36.6; O2SAT 99
[2023-03-05] MEDS: DOCUSATE SODIUM 100 MG CAPSULE PO (07:56)
[2023-03-05] MEDS: METFORMIN ER 500 MG 1000 MG PO (07:56)
[2023-03-05] MEDS: IBUPROFEN 600 MG TABLET PO (07:56)
--- NOTE | 2023-03-05 08:36 | P.DS_ITS ---
DS: Providers Provider Date Seen: 03/05/23 Date of admission: 03/01/23 15:54 Primary care physician: Not a Local Provider Admitting Clinician: Merry Kaur MD Attending Physician on discharge: Merry Kaur MD Date of Discharge: 03/05/23 DS: Diagnosis Discharge Diagnosis (1) hemorrhage: Status: Acute Problem details: Resolved with uterotonic medications (2) Iron deficiency anemia: Status: Acute Problem details: Secondary to hemorrhage. Status post 2 units red blood cells, symptoms improved (3) Chronic hypertension affecting : Status: Acute Problem details: Blood pressures in normal range on labetalol 300 mg daily and enalapril 5 mg daily, asymptomatic (4) PCOS (polycystic ovarian syndrome): Status: Acute (5) Type 1 diabetes mellitus: Status: Acute Problem details: Managed with an insulin pump and metformin by endocrinology Exam Const: Vital Signs, click to edit/add: Vital Signs - 24 hr 03/04/23 10:57 03/04/23 14:19 03/04/23 14:30 Temperature 98.4 F 98.4 F Pulse Rate 92 92 Pulse Rate [Pulse Oximeter] Respiratory Rate 18 18 Blood Pressure 133/79 133/79 Blood Pressure [Le ft Arm] 118/76 Pulse Oximetry 98 98 Oxygen Delivery Me thod 03/04/23 14:45 03/04/23 15:30 03/04/23 16:16 Temperature 98.6 F 98.7 F 98.5 F Pulse Rate 78 88 78 Pulse Rate [Pulse Oximeter] Respiratory Rate 18 16 18 Blood Pressure 140/83 H 137/83 130/86 Blood Pressure [Le ft Arm] Pulse Oximetry 98 98 98 Oxygen Delivery Me thod 03/04/23 17:04 03/04/23 19:56 03/05/23 06:46 Temperature 98.2 F 97.9 F 97.8 F Pulse Rate 92 Pulse Rate [Pulse Oximeter] 84 78 Respiratory Rate 18 16 16 Blood Pressure 136/70 Blood Pressure [Le ft Arm] 144/84 H 118/78 Pulse Oximetry 98 96 99 Oxygen Delivery Me thod Room Air Room Air Common normals: no apparent distress and oriented x3 General appearance: cooperative and comfortable Resp: Common normals: normal respiratory effort Effort & inspection: able to speak in complete sentences GI: Inspection: abdominal distension Percussion: tympanic to percussion Other: Fundus firm below umbilicus Neuro: Common normals: oriented x3 Speech: speech normal Gait (neuro): normal gait Psych: Common normals: mental status grossly normal OB - DS: Summary Hospital Course Hospital Course: The patient is a 27 year old G 1 P 0 at 36w6 gestation that was admitted to the Center on 03/01/23 for induction of labor secondary to chronic hypertension difficult to control on oral medications. She had an complicated vaginal delivery by hemorrhage. She delivered a viable female . She is breast and bottle feeding. the patient has improved, was initially symptomatic with anemia and hemoglobin of 7.6, and overall received 2 units red blood cell transfusion with a marked improvement in symptoms. Blood pressures remained in the normal range on labetalol and enalapril. Patient managed her own insulin pump and blood sugars were initially low, then high, and by discharge have improved. She is ambulating without difficulty, voiding spontaneously, lochia minimal, and pain controlled on oral pain medications. Peripartum Data Infant delivery method: Vacuum Laceration description: Periurethral - 2nd Degree complications: transfusion and uterine atony [place] Infant Gender: Female Discharge Plan: Home Time Spent with Patient Time attestation: Total time spent providing and/or coordinating discharge services: Time spent: Greater than 30 minutes Discharge Plan Discharge Disposition: Home, Self-Care Date of Admission: 03/01/23 15:54 Attending Provider on Discharge: Sudheer Us Primary Care Provider: Provider,Not a Local Condition: Stable Anticipated Discharge Date/Time: 03/05/23 11:44 Discharge Medications: New enalapril maleate 10 mg Tablet 5 mg PO DAILY 90 Days Qty: 90 0RF acetaminophen 500 mg Tablet 1,000 mg PO Q6H PRNQty: 30 0RF docusate sodium 100 mg Capsule 100 mg PO DAILY Qty: 30 0RF ibuprofen 600 mg Tablet 600 mg PO Q6H PRNQty: 30 0RF Continued (DME) Blood Pressure Cuff Misc See Rx Instructions .Route Qty: 1 0RF Rx Instructions: As directed Humalog KwikPen Insulin 200 unit/mL (3 mL) insulin pen 1 sliding scale dose subcut PRN Patient Comments: INJECT UP TO 160 UNITS SUBCUTANEOUSLY ONCE DAILY metformin 500 mg tablet extended release 24 hr 1,000 mg PO BID prenat.vits,anabel,[id number]-cvrjy Tablet 1 tab PO QDAY cholecalciferol (vitamin D3) 50 mcg (2,000 unit) capsule 50 mcg PO QDAY ferrous gluconate 225 mg (27 mg iron) tablet 225 mg PO QMWF Qty: 30 0RF Changed labetalol 300 mg tablet 300 mg PO BID 60 Days Qty: 120 0RF Discontinued nifedipine 30 mg tablet extended release 30 mg PO QDAY Qty: 30 1RF Discharge Orders: Discharge Order (Routine); Ordered 03/05/23 Ordered By: Sudheer Us Patient Education: OB [place] [facility], OB Over the Counter Medication Information, OB Vaginal/Breast Feeding Activity Detail: Nothing in the vagina for 6 weeks: No sex, no tampons, use a pad only Discharge Diet: Regular and Diabetic Follow Up Appointments: Provider,Not a Local [Primary Care Provider] - Merry Kaur MD [Staff Physician] - Forms: [employer] Info Instructions DS:Data Additional Comments Additional comments: Hemoglobin 7.6 prior to 2nd transfusion of RBCs, no further hemoglobins collected due to patient's improved symptoms and normal vital signs
[2023-03-05] MEDS: ENALAPRIL MALEATE 10 MG TABLET 5 MG PO (10:30)
[2023-03-05] MEDS: LABETALOL HCL 100 MG TABLET 300 MG PO (10:30)
[2023-03-05 10:36] VITALS: BP 143/83
[2023-03-05 15:09] VITALS: BP 138/83; PULSE 83; RESP 16; TEMP 36.8; O2SAT 97
== END 2023-03-05 15:41 | disposition home or self-care (01) | DRG 806 ==
PROVIDERS: Obstetrics & Gynecology; Admitting Provider Obstetrics & Gynecology; Visit Provider Obstetrics & Gynecology
DX: O11.4 Pre-existing hypertension with pre-eclampsia, complicating childbirth (principal); D62 Acute posthemorrhagic anemia; Z37.0 Single live birth; O98.513 Other viral diseases complicating pregnancy, third trimester; O10.92 Unspecified pre-existing hypertension complicating childbirth; O24.02 Pre-existing type 1 diabetes mellitus, in childbirth; Z79.84 Long term (current) use of oral hypoglycemic drugs; Z79.4 Long term (current) use of insulin; O70.1 Second degree perineal laceration during delivery; O72.1 Other immediate postpartum hemorrhage; O90.81 Anemia of the puerperium; O99.284 Endocrine, nutritional and metabolic diseases complicating childbirth; E28.2 Polycystic ovarian syndrome; Z86.16 Personal history of COVID-19; Z3A.36 36 weeks gestation of pregnancy
CPT/HCPCS: 36415; 36430; 59200; 85018; 85025; 85384; 85610; 85730; 86850; 86900; 86901; 86922; 88307; A9270; J2001; J2270; J7120; P9016

== ENCOUNTER 2023-03-24 13:10 | Outpatient (CLI) | payer OTHER, SELFPAY ==
--- NOTE | 2023-03-24 17:00 | P.LACCB_ITS ---
Consult Note - Mom Date of Visit Date of visit: 03/24/23 managing consultant: Neema Alejandre Visit Code: Visit Patient's Information Phone number: [phone] : 1 Para: 1 Allergies shellfish derived Allergy (Severe, Verified 03/01/23 20:40) Mother's Medical History: Medical History (Updated 03/13/23 @ 00:01 by Background Daemon) Chronic hypertension affecting ?O10.919 - Unspecified pre-existing hypertension complicating , unspecified trimester (ICD-10) History of hypertension ?Z86.79 - Personal history of other diseases of the circulatory system (ICD- 10) PCOS Type I DM PPH and received 2 units PRBC's Delivery Information Delivery type: Vaginal Weeks Gestation: 37.0 Gestational Age: AGA Weight: 2.744 kg Baby's Information Baby's Age at Visit: 3 weeks Baby's Provider or Clinic: Dr. Velasquez Jaundice: No Reason for Consult Reason for Consult: slow weight gain Past Experience Past Experience: No Current Frequency of Day Feedings: about every 2 - 3 hours around the clock Both Breasts: Yes Suck: strong with a nipple shield Latch: wide Length of Time: 20 - 30 minutes Goals: would like to wean from the nipple shield and be able to stop supplementing Pumping Pumping: Yes (BID) Quantity Pumped: 3 - 4 oz total Supplementing EMB Supplement: Yes Baby Elimination Number of Wet Diapers a Day: about 8 times/day Number of BM a Day: once/day Breast/Nipple Condition Breast Information: WNL Maternal Nipple Condition - Left: Common Nipple and Short Maternal Nipple Condition - Right: Common Nipple and Short Sore Nipples: No Onsite Pre-Feed weight: 3.01 kg Post-Feed weight: 3.072 kg Milk Transferred (mL): 62 Pre-Nursing Left Nipple: Within Normal Limits Pre-Nursing Right Nipple: Within Normal Limits Post-Nursing Left Nipple: Within Normal Limits Post-Nursing Right Nipple: Within Normal Limits Assessments/Interventions Assessments/Interventions: Met with mom and this now 3 week old ex- term AGA baby for consult. Per PCP note and mom baby has been very slow to gain weight. Mom has been nursing with a nipple shield every 2 - 3 hours around the clock and then supplementing with EBM after daytime feedings. At baby's last visit with PCP on 03/19 POC were instructed to continue supplementing but to do it overnight as well. Mom reports baby started spitting up more so she and dad are now supplementing with 1 - 1.5 oz after every other feeding. Mom pumps BID with her [place] pump and gets 3 - 4 oz total each time, but uses her [place] several times/day and gets about 2 oz total each time. Breasts WNL- symmetrical with rounded lower quadrants, intramammary distance < 1.5 inches. Nipples are somewhat short but everted and don't flatten or retract on compression, no damage noted. Baby has gained 26 grams/day since her last visit on 03/19. Mom denies any caput/cephalohematoma at delivery and thinks baby has equal ROM when turning her head and moving her extremities. Her upper frenulum is tight as her lip is difficult to flange and her gums shanti, no suck blister noted. Baby has a strong suck on a finger but her tongue slips back behind the gum line; there's some canoeing with lateralization. The lower frenulum wasn't visualized, posterior? Mom latched baby to the left side using the nipple shield. Baby had a wide latch, swallowing was heard. After about 15 minutes she came off and was weighed, she transferred 30 ml. Mom latched baby to the right side, starting with the shield but then taking it off after a few minutes. The latch looked wide, mom reported a fairly strong pulling sensation, and baby stayed latched (mom said at home when she tries to nurse without the shield baby can't maintain the latch). After baby came off the right side she was weighed but had only transferred 10 ml. Mom reapplied the shield and let baby nurse on that side again and she transferred another 22 ml for a total of 62 ml. Milk was seen in the shield both times. Mom was shown a few exercises to hopefully help baby extend her tongue over the gumline and an O ball was suggested. Plan: 1. Suggested mom continue to nurse on demand but baby should have at least 8 feedings in 24 hours. Continue to offer both sides and ok to try without a nipple shield once/day. 2. Suggested mom use her [place] to pump BID and to use her [place] if she ever has a feeding where milk isn't in the shield. Can also continue to use the [place], but to let baby have both sides first. 3. Reviewed that babies her age need 3 - 4 oz/feeding. If she's taking about 2 oz from the breast, she needs at least one more oz after all feedings. 4. Try the tongue exercises 3 - 5 times/day. 5. Will f/u on 04/07/23 for another pre and post feeding weight. Meds Home Medications and Allergies Home Medications Medication Instructions Recorded Confirmed Type cholecalciferol (vitamin D3) 50 50 mcg PO QDAY 08/10/22 03/01/23 History mcg (2,000 unit) capsule insulin lispro 200 unit/mL (3 mL) 1 sliding scale dose subcut PRN 08/10/22 03/01/23 History subcutaneous pen (Humalog KwikPen U-200 Insulin) metformin 500 mg tablet,extended 1,000 mg PO BID 08/10/22 03/01/23 History release 24 hr prenat.vits,anabel,aai-ahzh-ittbe 1 tab PO QDAY 08/10/22 03/01/23 History Allergies Allergy/AdvReac Type Severity Reaction Status Date / Time shellfish derived Allergy Severe Verified 03/01/23 20:40
== END 2023-03-24 13:11 | disposition home or self-care (01) ==
PROVIDERS: Visit Provider Obstetrics & Gynecology
DX: Z39.1 Encounter for care and examination of lactating mother (principal)
CPT/HCPCS: 99211

== ENCOUNTER 2023-11-11 14:32 | Outpatient (CLI) | payer OTHER, SELFPAY | END 2023-11-11 14:33 | disposition home or self-care (01) | LOC: FRMREF 14:33 | PROVIDERS: Visit Provider Registered Nurse | DX: R03.0 Elevated blood-pressure reading, without diagnosis of hypertension (principal); D50.9 Iron deficiency anemia, unspecified; E10.9 Type 1 diabetes mellitus without complications; Z13.9 Encounter for screening, unspecified | CPT/HCPCS: 84443 ==

== ENCOUNTER 2024-07-21 08:47 | Outpatient (CLI) | payer MEDICAID, SELFPAY | END 2024-07-21 08:48 | disposition home or self-care (01) | LOC: FRMREF 08:47 | PROVIDERS: Visit Provider Obstetrics & Gynecology | DX: E10.9 Type 1 diabetes mellitus without complications (principal); E28.2 Polycystic ovarian syndrome; N91.1 Secondary amenorrhea | CPT/HCPCS: 84443 ==

== ENCOUNTER 2024-11-27 15:03 | Outpatient (CLI) | payer BC, SELFPAY | END 2024-11-27 15:04 | disposition home or self-care (01) | LOC: NFLDREF 12-01 08:56 | PROVIDERS: Visit Provider Obstetrics & Gynecology | DX: N97.0 Female infertility associated with anovulation (principal) | CPT/HCPCS: 84144 ==

== ENCOUNTER 2025-01-05 08:11 | Outpatient (CLI) | payer BC, SELFPAY ==
--- NOTE | 2025-01-05 08:15 | CRLHL7_ITS ---
For Patients: As a result of the Century Cures Act, medical imaging exams and procedure reports are released immediately into your electronic medical record. You may view this report before your referring provider. If you have questions, please contact your health care provider. INDICATION: 29 year-old female. First trimester scan, establish dates. COMPARISON: None. TECHNIQUE: Real-time fernando-scale imaging of the pelvis was performed transvaginally. FINDINGS: Sonographic imaging demonstrates a single living intrauterine gestation. The embryo demonstrates a regular cardiac rate measuring 173 beats per minute. The embryo`s crown-rump length measurement of 1.6 cm corresponds to a gestational age of 8 weeks 0 days with a sonographic due date of August 17, 2025. There is a normal-appearing yolk sac measuring 3.9 mm. There are no gross abnormalities noted within the embryo at this early state of development. The placenta has not yet developed. The gestational sac has a normal appearance and there is no evidence of a perigestational hemorrhage. The amount of fluid within the sac appears appropriate for gestational age. The cervix is closed. The myometrium appears normal. The left ovary is not visualized. The right ovary measures 5.3 x 3.3 x 3.1 cm. The right ovary contains a small corpus luteum cyst measuring 2.7 x 1.8 x 2.1 cm. There are no suspicious fluid collections noted in the cul-de-sac. IMPRESSION: Normal first trimester OB ultrasound exam. Gestational age calculated at 8 weeks 0 days with a sonographic due date of August 17, 2025. Dictated by Clifton Ray MD @ 01/09/2025 12:06:41 PM (Electronically Signed)
== END 2025-01-05 08:12 | disposition home or self-care (01) ==
LOC: US 08:11
PROVIDERS: Visit Provider Physician Assistant
DX: Z34.91 Encounter for supervision of normal pregnancy, unspecified, first trimester (principal); Z3A.08 8 weeks gestation of pregnancy
CPT/HCPCS: 76817; 82565; 82570; 83021; 84450; 84460; 84520; 86592; 86703; 86704; 86706; 86762; 86787; 86803; 86850; 87086; 87340

== ENCOUNTER 2025-02-01 11:15 | Outpatient (CLI) | payer BC, SELFPAY | END 2025-02-01 11:16 | disposition home or self-care (01) | LOC: NFLDREF 11:16 | PROVIDERS: Visit Provider Obstetrics & Gynecology | DX: O10.911 Unspecified pre-existing hypertension complicating pregnancy, first trimester (principal); Z3A.12 12 weeks gestation of pregnancy | CPT/HCPCS: 82570; 84156 ==

== ENCOUNTER 2025-02-07 15:00 | Outpatient (CLI) | payer BC, SELFPAY | END 2025-02-07 15:01 | disposition home or self-care (01) | LOC: NFLDREF 02-09 18:03 | PROVIDERS: Visit Provider Obstetrics & Gynecology | DX: O10.911 Unspecified pre-existing hypertension complicating pregnancy, first trimester (principal); Z3A.12 12 weeks gestation of pregnancy | CPT/HCPCS: 82570; 84156 ==

== ENCOUNTER 2025-03-16 10:44 | Outpatient (CLI) | payer BC, SELFPAY ==
--- NOTE | 2025-03-16 11:15 | CRLHL7_ITS ---
For Patients: As a result of the Century Cures Act, medical imaging exams and procedure reports are released immediately into your electronic medical record. You may view this report before your referring provider. If you have questions, please contact your health care provider. OB ULTRASOUND FOLLOW-UP/LIMITED CLINICAL HISTORY: No FHT. TECHNIQUE: Real time fernando scale imaging of the fetus was performed. Transabdominal imaging performed. FINDINGS: LMP: 11/07/2024. ZION by LMP: 08/14/2025. GA: 18 weeks 3 days. Gestation: Single. Cervix: Not visualized. Positioning: Vertex. Amniotic Fluid: 3.7 cm SDP. Placenta: Technique: TA. Placenta Position: Fundal. Dopplers: Heart Rate: 0 bpm. BIOMETRY BPD: 3.8 cm, 17 weeks 4 days. 16% HC: 14.6 cm, 17 weeks 5 days. 13% AC: 10.8 cm, 16 weeks 5 days. 5% FL: 2.2 cm, 16 weeks 5 days. <3% FL/AC Ratio: 20.84% HC/AC Ratio: 1.35. EFW: 169.95. 0 lb 6 oz. Age by this US: 17 weeks 1 day. ZION by this US: 08/23/2025. Percentile by ZION: <3% IMPRESSION: Intrauterine demise measures 17 weeks 1 day. No heart tones are present. No hemorrhage. Fahad Zayas M.D. Diagnostic Radiologist [email or web address] Transcribed: 11:49 am DW/Dictated by: Fahad Zayas MD @ 03/16/2025 11:42:00 AM (Electronically Signed)
== END 2025-03-16 10:45 | disposition home or self-care (01) ==
LOC: US 10:45
PROVIDERS: Visit Provider Obstetrics & Gynecology
DX: O20.0 Threatened abortion (principal); O36.4XX0 Maternal care for intrauterine death, not applicable or unspecified; Z3A.18 18 weeks gestation of pregnancy
CPT/HCPCS: 76815

== ENCOUNTER 2025-03-17 21:39 | Inpatient (IN) | payer BC, SELFPAY ==
[2025-03-17] VITALS (11 sets, daily range): BP systolic 137–197; BP diastolic 70–91; PULSE 77–97; TEMP 36.7; O2SAT 98; BMI 35.3
[2025-03-17] MEDS: LABETALOL HCL 100 MG TABLET 200 MG PO (17:05)
--- NOTE | 2025-03-17 17:28 | PM.OBHPLI ---
OB - H&P: HPI Labor/Induction History of Present Illness Time Seen by Provider: 17:30 Date Seen: 03/17/25 Chief Complaint: IUFD IOL Chief complaint: Maternity Narrative: Delayed documentation due to patient cares. Patient was admitted on 03/17. Sue is a 29 year old 2 para 1 at 18w4d GA by LMP diagnosed with missed by formal US yesterday where fetus measures 17w1d GA. is complicated by DM1, uncontrolled chronic HTN (on labetolol 200mg BID), history of complicated by PPH (requiring blood transfusion), secondary infertility, PCOS (conceived on letrozole), anemia. Patient was counseled on her options of management of 2nd trimester demise, she was undecided on 03/16 after counseling. Patient of the like all the [facility] this morning, noting she would like to proceed with induction and was planning to do so on Wednesday. Later in the day, she called again reporting some cramping and back pain. On arrival, patient is well-appearing. She does note some intermittent low back pain that radiates around her size to her from abdomen. She denies any cramping abdominal pain, slight vaginal pressure. She denies any fever/chills, nausea/vomiting, abnormal vaginal discharge or malodor. No vaginal bleeding or leaking of fluids. Patient manages her diabetes with a insulin pump and continuous glucose monitor. Her basal rate is 5.5 units/hour of Humalog presently. CGM data reviewed, where she has spent 79% of time at goal (60-180) in the last 2 weeks, 4% with hypoglycemia values and 21% high values (>=180mg/dL). She does not have any signs or symptoms to suggest DKA at this time. Alisha has had a a upper respiratory infection, which peaked but 2 weeks ago. She does continue to have a lingering cough. She was evaluated in urgent care, where she was treated with zithromax for walking pneumonia. Her coughing persists, where she was started on nebulizer treatmes for an otherwise unsubstantiated diagnosis of asthma. She denies any known history of reactive airway disease or former diagnosis of asthma. CXR on 03/16 was negative for any acute findings - lungs and pleural spaces clear. Trace atelectasis in left lower lobe. Specific Issues/Plans Partner: Alan Daughter: Nancy Rivera [employer] in [place]. IUFD diagnosed 03/16. Considering options of IOL vs referral for D&E. # chronic hypertension Baseline pre E labs: hgb 12.9, plts 253K, BUN 9, creat 0.5, AST 23, ALT 14. Urine P/C 02/07/25: 0.12 24hr urine for protein 02/07/25: 211.5mg Elevated reading at new OB, elevated readings at home: Labetalol 100 mg b.i.d. initiated 01/22 02/01: Labetalol 200 mg b.i.d. Aspirin 81 mg Weekly testing starting at 32 weeks: Growth ultrasound every 4 weeks starting at 28 weeks: # type 1 diabetes 02/07: Endocrin f/u, Dr. Feliz Kaur, [facility]: Continue Tresiba insulin 60U daily, continue insulin pump therapy (using U200 insulin). Discussed the use of metformin in the 2nd and 3rd trimester to assist with insulin resistance. Follow-up in 2 months: Hemoglobin A1c every trimester First: 7.6% 2nd: 3rd: Level 2 ultrasound: referral placed echo: [] Twice weekly testing starting at 32 weeks Ultrasound for EFW every 4 weeks starting at 28 weeks # history of vacuum assisted vaginal delivery # history of hemorrhage with transfusion of blood products # obesity, BMI 35.0 # conceived with letrozole # varicella nonimmune Vaccinate #HepB nonimmune: discussed on 02/01/25, booster Imaging: [Summary of level II or follow up US here; BPP scores not necessary] Vaccinations: COVID: [] Flu: [] Tdap: [] RSV: [] 32 week mental health: [] Last pap: 11/11/23 Meds Home Medications and Allergies Home Medications ?Medication ?Instructions ?Recorded ?Confirmed ?Type miscellaneous medical supply #1 ea 02/19/23 03/16/25 Rx (Blood Pressure Cuff) [id number] 3 fatty no.1 27 cap PO 01/05/25 03/16/25 History mg-1 mg-300 mg capsule insulin degludec 100 unit/mL (3 70 unit subcut QDAY 01/05/25 03/16/25 History mL) subcutaneous pen (Tresiba FlexTouch U-100 insulin) insulin lispro 200 unit/mL (3 mL) 70 unit (0.35 mL) subcut QACBREAK 01/11/25 03/16/25 Rx subcutaneous pen (Humalog KwikPen #6 mL U-200 Insulin) blood pressure kit-extra large #1 ea 01/19/25 03/16/25 Rx labetalol 200 mg tablet 200 mg PO BID #180 tabs 02/01/25 03/16/25 Rx labetalol 300 mg tablet 300 mg PO TID #90 tabs 03/16/25 03/16/25 Rx Allergies Allergy/AdvReac Type Severity Reaction Status Date / Time shellfish derived Allergy Severe Verified 03/16/25 09:33 OB - H&P: Exam Physical Exam: Vital signs: Pulse BP Pulse Ox 90 158/71 H 98 03/17/25 17:02 03/17/25 17:02 03/17/25 16:47 Narrative: Vital signs. Initial blood pressures were markedly elevated at 197/90 and 168/75 on 2 minute recheck. 15 minutes later, her BP was out of the severe range at 158/71. Labetolol 200mg was administered, with interval improvement. General: Alert and oriented, no acute distress Psych: Appropriate mood and affect. Grieving appropriately. Heart: Regular rate and rhythm Lungs: Clear to posterior auscultation Abdomen: Soft, nondistended, fundus palpates just below umbilicus. Nontender to palpation throughout. No rebound or guarding. Cervix: Closed by Rn exam OB - Problem Based A/P Additional Plan (1) demise: Status: Acute (2) URI (upper respiratory infection): Status: Acute (3) IUFD at less than 20 weeks of gestation: Status: Acute (4) History of pre-eclampsia in prior , currently : Status: Acute (5) Type 1 diabetes mellitus affecting , antepartum: Status: Acute (6) Chronic hypertension affecting : Status: Acute (7) Infertility associated with anovulation: Status: Acute Plan Sue is a 29 year old 2 para 1 at 18w4d GA by LMP diagnosed with missed by formal US on 03/16 where fetus measures 17w1d GA. is complicated by DM1, uncontrolled chronic HTN (on labetolol 200mg BID), history of complicated by PPH (requiring blood transfusion), secondary infertility, PCOS (conceived on letrozole), anemia. Patient was counseled on her options of induction of labor versus D&E by Dr. Garibay on 03/16. She was undecided initially, then presented to care on 03/17 with some low back pain that radiates to her abdomen and vaginal pressure. Patient is overall well appearing, afebrile on presentation. She has marked hypertension on arrival, which did improve with a period of rest. We resumed her home labetalol 200 mg TID, later did increase the dose to labetalol 300 mg t.i.d.. Patient is not tachycardic. Abdominal exam is negative for any tenderness (specifically no fundal tenderness), rebound or guarding. Cervical exam was performed by nurses, noted to be closed. Patient is denying any infectious symptoms such as fever/chills, nausea/vomiting, abnormal vaginal discharge or malodor. She is not experiencing any significant contractions at this time, aside from the description of low back pain that wraps around to her abdomen. No vaginal bleeding or leaking of fluid. [place] monitoring was completed, no contractions detected. Comprehensive lab evaluation was completed, including a CBC, CMP, coags, UDS. White blood cell count of 13.99, likely physiologic in the state of . Glucose of 133, creatinine 0.5, AST 21, ALT 12. Anion gap is 10. Recommended viral panel to evaluate for potential flow/open, patient declined. Explained from a safety perspective, we need to achieve better control of Sue's BP due to significant chronic hypertension exacerbation. Explained there are no signs/symptoms to suggest preeclampsia (headache, vision changes, right upper quadrant pain) in this would be highly unlikely at her early gestational age. Diligent blood pressure monitoring ongoing. Plan to treat any sustained severe range blood pressures with short-acting antihypertensive medications. If needed, we will continue to increase her long-acting antihypertensive regimen as well. With regard to diabetes, Sue strongly desires to continue to honestly manage her insulin and blood glucose. She utilizes a continuous glucose monitor and insulin pump, where basal rate is 5.5 units/hour Humalog. Her recent glycemic control is adequate. As such, I am comfortable with this. Explained that we may need to alter her regimen in the setting of uncontrolled hyperglycemia or hypoglycemia or in the perioperative phase. I again counseled Sue about her options for management. Explained the respective risks and benefits of dilation and evacuation versus induction of labor. Explained we could only offer her an induction of labor here, where referral for D and E would be placed. From a safety perspective, I explained that she is at an increased risk of bleeding in the setting of an IUFD (which can be associated with coagulopathy, coags negative on admission however) as well as her history of a hemorrhage that required blood transfusion. Type and screen obtained, cross-matched patient for 2 units packed red blood cells. Explained induction would include vaginal Cytotec for up to 6 doses, followed by high-dose Pitocin if needed. After delivery, we would proceed with IV Pitocin to encourage delivery of the placenta followed by Hemabate or Cytotec if placenta failed to deliver. Patient does not truly have a known history of asthma, however we will reassess if Hemabate were to be required given her recent upper respiratory infection where she was prescribed a nebulizer. Explained that the risk of retained placenta is estimated to be about 20% with a Cytotec induction in the 2nd trimester, where D&C would be required. We did review potential risks of suction D&C specifically as well, including bleeding, infection, damage to surrounding structures (uterus, tubes, ovaries, bowel, bladder, blood vessels), perforation, intrauterine scarring. I explained that altogether, data would suggest D&E is associated with less obstetrics complications. After counseling, she wishes to proceed with 2nd trimester IOL here. With regard IUFD evaluation, she would like all testing to be completed. APLS labs are pending, plan culture of placenta/membranes, genetic evaluation. Fetus and placental tissues to be sent for pathologic evaluation. - Start IOL with 400mcg cytotec PV q3-4 hours up to 6 doses. IOL would continue with pitocin PRN. - Of note, IOL was started several hours later due to emergencies on the unit - Continue to monitoring for signs/symptoms of intrauterine infection or bleeding, evaluation reassuring at this time - T/S on file, 2u cross matched for pRBCs - Pain control per patient preference and anesthesia - Extensive counseling on risks/benefits completed - Bereavement cares ongoing - Diligent monitoring of BP ongoing - plan as noted above. Current antihypertensive regimen is labetolol 300mg TID.
[2025-03-17 17:50] LABS: Hematocrit* 36.5 % (33.0-51.0); Hemoglobin* 12.0 gm/dL (12.0-16.0); Immature Granulocytes Pct Auto 0.2 %; Mean Corpuscular HGB Conc 33 gm/dL (32-36); Mean Corpuscular Hemoglobin 25 pg (26-34); Mean Corpuscular Volume 75 fL (80-100); RDW Coefficient of Variation % 13.6 % (11.5-15.5); Red Blood Count* 4.85 m/uL (4.00-5.20); White Blood Count* 13.99 K/uL (4.50-11.00)
[2025-03-17 17:57] LABS: Immature Granulocytes Abs Auto 0.00 K/uL (0.00-0.30); Lymphocytes Absolute Auto 2.10 K/uL (0.90-2.90); Slide Review Reflex No
[2025-03-17 18:00] LABS: Albumin* 4.0 g/dL (3.3-5.0); Chloride* 106 mmol/L (96-114); Potassium* 3.7 mmol/L (3.6-5.1); Sodium* 135 mmol/L (135-149)
[2025-03-17 18:03] LABS: Alanine Aminotransferase* 12 U/L (4-35); Alkaline Phosphatase* 64 U/L (40-150); Anion Gap 10 mEq/L (7-15); Aspartate Amino Transferase* 21 U/L (12-35); Bilirubin Total* 0.3 mg/dL (0.1-1.5); Blood Urea Nitrogen* 7 mg/dL (5-24); Carbon Dioxide* 19 mmol/L (20-32); Creatinine* 0.5 mg/dL (0.5-1.5); Estimated Glomerular Filt Rate 131 ml/min; INR 1.00 (0.91-1.10); Prothrombin Time 14.0 Seconds; Total Protein* 7.2 g/dL (6.0-8.3)
[2025-03-17 18:04] LABS: Calcium* 9.0 mg/dL (8.4-10.6); Glucose* 133 mg/dL (60-115)
[2025-03-17] MEDS: ACETAMINOPHEN 500 MG TABLET 1000 MG PO (22:07)
[2025-03-17 22:48] LABS: Cannabinoid Screen Urine Negative (Negative); Methamphetamines Screen Urine Negative (Negative); Tricyclic Antidepressant Urine Negative (Negative)
[2025-03-18] VITALS (37 sets, daily range): BP systolic 119–183; BP diastolic 57–105; PULSE 60–94; RESP 16–26; TEMP 36.6–36.8; O2SAT 93–96
[2025-03-18] MEDS: LABETALOL HCL 5 MG/ML inj IVP ×2 (00:23→01:12)
[2025-03-18] MEDS: LABETALOL HCL 100 MG TABLET 300 MG PO ×3 (00:39→14:19)
[2025-03-18] MEDS: ACETAMINOPHEN 500 MG TABLET 1000 MG PO ×2 (04:23→12:14)
[2025-03-18] MEDS: LOPERAMIDE HCL 2 MG CAPSULE 4 MG PO (07:03)
[2025-03-18] MEDS: OXYTOCIN 30 unit/500 ML in NS 30 UNIT/500 ML BAG 300 UNIT IVPB ×2 (08:32→11:02)
--- NOTE | 2025-03-18 09:37 | PM.OBPNL ---
Subjective Time Seen by Provider: 04:00 Date Seen: 03/18/25 Narrative: Sue is a 29 year old 2 para 1 at 18w4d GA by LMP (measuring 17w1d GA by formal US on 03/16 confirming demise) ongoing IOL for 2nd trimester miscarriage. is complicated by DM1, uncontrolled chronic HTN (on labetolol 200mg BID), history of complicated by PPH (requiring blood transfusion), secondary infertility, PCOS (conceived on letrozole), anemia. Overnight, with had significant difficulty controlling her blood pressures. Patient has had several rounds of sustained severe range blood pressures, necessitating treatment with IV labetalol 20 mg x 2. Her antihypertensive regimen was also revised to labetalol 300 mg t.i.d. and nifedipine XL 30 mg daily. Patient is asymptomatic. She has been feeling restless overnight and understandably just wants this to be over in terms of her delivery. She denies significant anxiety but has been noted to be pacing and restless. Not interested in medications for anxiety or pain at this time. Patient is received 2 rounds of Cytotec PV. She is feeling cramping, needs to go to the bathroom but is concerned about passing the fetus. RN exam attempted but was challenging due to high/posterior cervix. I presented to bedside to repeat exam. Objective Exam: General: Alert and oriented, no acute distress Psych: Appropriate mood and affect. Grieving appropriately. Cervix: Challenging exam due to high station and posterior cervix, approximately 1.5cm dilated. Vital Signs: Last Vital Signs Temp 98.3 F 03/18/25 07:54 Pulse 78 03/18/25 09:19 Resp 20 03/18/25 07:54 BP 135/72 03/18/25 09:19 Pulse Ox 96 03/18/25 07:54 Plan Plan: Sue is a 29 year old 2 para 1 at 18w4d GA by LMP (measuring 17w1d GA by formal US on 03/16 confirming demise) ongoing IOL for 2nd trimester miscarriage. is complicated by DM1, uncontrolled chronic HTN, history of complicated by PPH (requiring blood transfusion), secondary infertility, PCOS (conceived on letrozole), anemia. - Patient is s/p 2 rounds of PV cytotec, 1.5cm dilated now. Recommend we continue PV cytotec per protocol to facilitate delivery. - Significant difficulty controlling her blood pressures overnight. Patient has had several rounds of sustained severe range blood pressures, necessitating treatment with IV labetalol 20 mg x 2. Her antihypertensive regimen was also revised to labetalol 300 mg t.i.d. and nifedipine XL 30 mg daily. Diligent monitoring ongoing, plan to continue to treat sustained SRBP and modify antihypertensive regimen as needed. - Pain control or anxiolytic therapy per patient preference, declined at this time - Remaining plan otherwise as noted in my admision H&P
--- NOTE | 2025-03-18 09:55 | W.PM.VAGDEL1 ---
Procedure Delivery date: 03/18/25 Procedure Done: Global Procedure Details: Normal spontaneous vaginal delivery of known 2nd trimester demise Spontaneous delivery of placenta Events: Chronic Hypertension (uncontrolled), Labor Induction and Other (Type 1 diabetes, history of hemorrhage ) Delivery monitor: none (Known 2nd trimester miscarriage ) Narrative: Sue is a 29 year old 2 para 1 at 18w4d GA by LMP (measuring 17w1d GA by formal US on 03/16 confirming demise) admitted on 03/17 for IOL for 2nd trimester miscarriage. is complicated by DM1, uncontrolled chronic HTN, history of complicated by PPH (requiring blood transfusion), secondary infertility, PCOS (conceived on letrozole), anemia. Her labor was induced with PV cytotec 400mcg Q4 hours and natural methods were utilized for pain management. I was requested at the bedside at 0815 for suspected delivery of fetus. On arrival, the intact amniotic sac was noted to have delivered and was resting at the perineum supported by RN. Fetus was noted to have delivered en caul, where amniotomy was performed for light brown/rust colored fluid and fetus was delivered. Cord was doubly clamped and cut. Per patient request, fetus was transferred to [facility] for initial cares. Amniotic membranes and cord were noted to be protruding from the vagina, placenta undelivered. No bleeding was noted. IV pitocin was initiated with 30u in 500cc crystalloid at 300mL/hr. No active bleeding was noted per vagina, no blood in the drape. Q15m perineal checks ensued when pitocin infusion ran. No bleeding was noted throughout. Patient got up to void about 1.5 hours post-delivery. At 2 hours post-delivery, I was notified that patient reported pressure and small volume bleeding. I arrived at bedside, where lengthening of the cord was noted with a small trickle of bleeding suspicious for placental separation. Patient subsequently pushed a few times, where placenta delivered spontaneously. It was inspected and suspected to be intact. Fundal massage ensued, palpates firm but limited somewhat by early GA and body habitus. Small volume maroon bleeding was noted per vaginal with fundal massage. No active or bright red bleeding throughout. Perineum was inspected and noted to be intact. Excellent hemostasis was noted. Second infusion of IV pitocin was started given patient history of PPH. QBL from delivery was 100cc. Sponge count correct, no needles utilized. Mother in stable condition following the . Fetus was inspected, only notable findings include narrowed cord at the umbilical cord insertion with twisting throughout cord and potentially low set ears. demise evaluation ongoing per protocol. [place] Gender: Male Placental Delivery Description: Spontaneous
[2025-03-18] MEDS: miSOPROStoL 800 MCG/4 TABLET PR (11:31)
[2025-03-18 13:43] LABS: Hemoglobin* 12.0 gm/dL (12.0-16.0)
--- NOTE | 2025-03-18 15:52 | PM.OBDSVD1 ---
DS: Providers Provider Date Seen: 03/18/25 Date of admission: 03/17/25 21:39 Primary care physician: Not a Local Provider Admitting Clinician: Simran Waldron MD Attending Physician on discharge: Simran Waldron MD Exam Narrative: Exam Narrative: General: Alert and oriented Psych: In no acute distress Hgb stable at 12.0 post-delivery Const: Vital Signs, click to edit/add: Vital Signs - 24 hr 03/17/25 16:42 03/17/25 16:44 03/17/25 16:46 Temperature Pulse Rate 97 93 Pulse Rate [Right Blood Pressure Cuf f] Respiratory Rate Blood Pressure 197/90 H 168/75 H Blood Pressure [Ri ght Arm] Pulse Oximetry 98 03/17/25 16:47 03/17/25 16:56 03/17/25 17:02 Temperature 98.1 F Pulse Rate 90 Pulse Rate [Right Blood Pressure Cuf f] Respiratory Rate Blood Pressure 158/71 H Blood Pressure [Ri ght Arm] Pulse Oximetry 98 03/17/25 17:33 03/17/25 17:57 03/17/25 18:18 Temperature Pulse Rate 89 84 92 Pulse Rate [Right Blood Pressure Cuf f] Respiratory Rate Blood Pressure 152/91 H 138/75 137/81 Blood Pressure [Ri ght Arm] Pulse Oximetry 03/17/25 22:03 03/17/25 23:47 03/18/25 00:03 Temperature Pulse Rate 81 77 75 Pulse Rate [Right Blood Pressure Cuf f] Respiratory Rate Blood Pressure 148/70 H 174/87 H 164/78 H Blood Pressure [Ri ght Arm] Pulse Oximetry 03/18/25 00:22 03/18/25 00:38 03/18/25 00:53 Temperature Pulse Rate 73 71 67 Pulse Rate [Right Blood Pressure Cuf f] Respiratory Rate Blood Pressure 183/79 H 142/65 H 167/71 H Blood Pressure [Ri ght Arm] Pulse Oximetry 03/18/25 00:53 03/18/25 01:08 03/18/25 01:23 Temperature 97.8 F Pulse Rate 64 60 Pulse Rate [Right Blood Pressure Cuf f] Respiratory Rate 20 Blood Pressure 160/72 H 151/66 H Blood Pressure [Ri ght Arm] Pulse Oximetry 03/18/25 01:38 03/18/25 01:53 03/18/25 02:08 Temperature Pulse Rate 71 69 68 Pulse Rate [Right Blood Pressure Cuf f] Respiratory Rate Blood Pressure 138/64 149/74 H 146/71 H Blood Pressure [Ri ght Arm] Pulse Oximetry 03/18/25 02:23 03/18/25 02:38 03/18/25 02:53 Temperature Pulse Rate 66 76 78 Pulse Rate [Right Blood Pressure Cuf f] Respiratory Rate Blood Pressure 162/79 H 145/66 H 145/67 H Blood Pressure [Ri ght Arm] Pulse Oximetry 03/18/25 03:08 03/18/25 03:23 03/18/25 03:42 Temperature Pulse Rate 82 77 64 Pulse Rate [Right Blood Pressure Cuf f] Respiratory Rate Blood Pressure 135/63 158/73 H 122/61 Blood Pressure [Ri ght Arm] Pulse Oximetry 03/18/25 04:05 03/18/25 04:26 03/18/25 04:37 Temperature 98.2 F Pulse Rate 69 65 Pulse Rate [Right Blood Pressure Cuf f] Respiratory Rate 16 Blood Pressure 127/62 131/58 L Blood Pressure [Ri ght Arm] Pulse Oximetry 94 03/18/25 04:37 03/18/25 04:55 03/18/25 05:35 Temperature Pulse Rate 63 92 Pulse Rate [Right Blood Pressure Cuf f] Respiratory Rate Blood Pressure 132/62 127/71 Blood Pressure [Ri ght Arm] Pulse Oximetry 95 03/18/25 06:39 03/18/25 06:40 03/18/25 07:54 Temperature 98.2 F 98.3 F Pulse Rate 85 94 Pulse Rate [Right Blood Pressure Cuf f] Respiratory Rate 20 20 Blood Pressure 131/68 129/105 H Blood Pressure [Ri ght Arm] Pulse Oximetry 96 03/18/25 08:07 03/18/25 08:58 03/18/25 09:19 Temperature Pulse Rate 75 83 78 Pulse Rate [Right Blood Pressure Cuf f] Respiratory Rate Blood Pressure 143/72 H 173/85 H 135/72 Blood Pressure [Ri ght Arm] Pulse Oximetry 03/18/25 09:40 03/18/25 10:01 03/18/25 10:35 Temperature Pulse Rate 75 83 Pulse Rate [Right Blood Pressure Cuf f] Respiratory Rate 20 Blood Pressure 136/73 146/72 H Blood Pressure [Ri ght Arm] Pulse Oximetry 93 03/18/25 10:35 03/18/25 10:35 03/18/25 10:35 Temperature 98.3 F Pulse Rate 75 Pulse Rate [Right Blood Pressure Cuf f] Respiratory Rate 20 Blood Pressure 130/60 Blood Pressure [Ri ght Arm] Pulse Oximetry 94 03/18/25 10:49 03/18/25 10:49 03/18/25 11:09 Temperature Pulse Rate 68 71 Pulse Rate [Right Blood Pressure Cuf f] Respiratory Rate 16 Blood Pressure 130/60 137/73 Blood Pressure [Ri ght Arm] Pulse Oximetry 03/18/25 11:09 03/18/25 11:37 03/18/25 11:54 Temperature Pulse Rate 67 72 Pulse Rate [Right Blood Pressure Cuf f] Respiratory Rate 20 Blood Pressure 136/70 122/57 L Blood Pressure [Ri ght Arm] Pulse Oximetry 03/18/25 11:54 03/18/25 12:09 03/18/25 12:09 Temperature 98.3 F Pulse Rate 78 Pulse Rate [Right Blood Pressure Cuf f] Respiratory Rate 20 20 Blood Pressure 124/66 Blood Pressure [Ri ght Arm] Pulse Oximetry 03/18/25 12:56 03/18/25 12:56 03/18/25 14:05 Temperature Pulse Rate 83 Pulse Rate [Right Blood Pressure Cuf f] Respiratory Rate 26 H 16 Blood Pressure 124/75 119/74 Blood Pressure [Ri ght Arm] Pulse Oximetry 03/18/25 14:12 Temperature Pulse Rate Pulse Rate [Right Blood Pressure Cuf f] 93 Respiratory Rate Blood Pressure Blood Pressure [Ri ght Arm] 119/74 Pulse Oximetry OB - DS: Summary Hospital Course Hospital Course: The patient is a 29 year old G 2 P 1 at 18 weeks gestation that was admitted to the Center on 03/17/25 for IOL in the setting of 2nd trimester loss. She had a confirmed loss by US on 03/16, measuring 17w1d GA. complicated by uncontrolled chronic HTN, DM1, history of PPH, current upper respiratory infection. She had an uncomplicated vaginal delivery of a nonviable male fetus. Placenta delivered with IV pitocin about 2 hours after delivery. Total delivery QBL 350cc. the patient has done well. Intrapartum course was complicated by uncontrolled HTN, requiring IV labetolol 20mg x2 in the early hours of 03/18. Her long acting antihypertensive regimen was revised to labetolol 300mg TID and nifedipine XL 30mg daily. Patient's BP was much improved after delivery, entirely normotensive. Plan to discharge on labetolol 300mg TID and hold nifedipine to avoid hypotension. Recommend twice daily BP checks, bring log to follow up visit. Recommend follow up in clinic late this week for MD visit and BP check, in addition to 2 and 6 week visits. [place] Gender: Male Time Spent with Patient Time attestation: Total time spent providing and/or coordinating discharge services: Discharge Plan Discharge Disposition: Home, Self-Care Date of Admission: 03/17/25 21:39 Primary Care Provider: Provider,Not a Local Condition: Stable Anticipated Discharge Date/Time: 03/18/25 17:30 Discharge Medications: Continued (DME) Blood Pressure Cuff Misc See Rx Instructions .Route Qty: 1 0RF Rx Instructions: As directed [id number] 3 fatty no.1 27-1-300 mg capsule PO insulin degludec [Tresiba FlexTouch U-100] 100 unit/mL (3 mL) insulin pen 70 unit subcut QDAY labetalol 300 mg tablet 300 mg PO TID Qty: 90 0RF Humalog KwikPen Insulin 200 unit/mL (3 mL) insulin pen 70 unit subcut QACBREAK Qty: 6 6RF Rx Instructions: maximum of 220 units/day (DME) blood pressure kit-extra large Kit See Rx Instructions .Route Qty: 1 0RF Rx Instructions: As directed Discontinued labetalol 200 mg tablet 200 mg PO BID Qty: 180 2RF Discharge Orders: Discharge Order (Routine); Ordered 03/18/25 Ordered By: Simran Waldron Additional Instructions: Discharge instructions were reviewed with the patient including signs and symptoms of infection and home going medications Nothing vaginally for 6 weeks: no tampons or intercourse Do not drive while taking narcotic pain medication(s) Off Work or School for 8 weeks Symptoms to report to doctor: Bleeding that saturates more than one pad per hour Passing clots larger than the size of a golf ball Pain not relieved by prescribed medication Fever above 100.4 degrees Fahrenheit A foul vaginal odor Difficulty in emotions, mood, and functions Thoughts of hurting yourself or anyone else Painful, reddened area in your breast Any drainage, redness, or tenderness in your IV/epidural site Severe headache that doesn't improve after taking medications Changes in vision, including temporary loss of vision, blurred vision, and/or light sensitivity Upper abdominal pain (usually under ribs on the right side) Decrease in urination or painful, frequent urinating Chest pain Shortness of breath Tenderness or pain with redness and/swelling in the calf(s) of your leg [facility] for a BP check with MD on 03/22 or 03/23. Please call clinic to schedule if you do not receive a call on Wednesday. Call with BP greater than or equal to 160/110 Optional 2-week visit: discuss concerns, review control options and screen for anxiety/depression. 6-week visit for an annual exam. Follow Up Appointments: Provider,Not a Local [Primary Care Provider, Family Practice] Forms: [facility] Belongings, [place] [facility] Instructions
[2025-03-21 22:33] LABS: Anti-Xa Qualitative Not Performed (Not Present); Anticoagulant Medication N Not Performed (Not Performed); Neutralized PTT-LA Not Performed (<=1.20); Neutralized dRVVT Screen Not Performed (<=1.20)
[2025-03-22 09:18] LABS: Cardiolipin Antibody IgA <10 APL (<=11); Cardiolipin Antibody IgG <10 GPL (<=14); Cardiolipin Antibody IgM <10 MPL (<=12)
== END 2025-03-18 17:15 | disposition home or self-care (01) | DRG 564 ==
LOC: OB OUT 21:39 → OB 21:39
PROVIDERS: Admitting Provider Obstetrics & Gynecology; Visit Provider Obstetrics & Gynecology
DX: O02.1 Missed abortion (principal); O10.912 Unspecified pre-existing hypertension complicating pregnancy, second trimester; O24.012 Pre-existing type 1 diabetes mellitus, in pregnancy, second trimester; Z79.4 Long term (current) use of insulin; O99.512 Diseases of the respiratory system complicating pregnancy, second trimester; J06.9 Acute upper respiratory infection, unspecified; O99.282 Endocrine, nutritional and metabolic diseases complicating pregnancy, second trimester; E28.2 Polycystic ovarian syndrome; O99.012 Anemia complicating pregnancy, second trimester; D64.9 Anemia, unspecified; Z3A.17 17 weeks gestation of pregnancy; O36.4XX0 Maternal care for intrauterine death, not applicable or unspecified; Z3A.18 18 weeks gestation of pregnancy
CPT/HCPCS: 36415; 76815; 80053; 80306; 81229; 81265; 85018; 85025; 85384; 85460; 85520; 85525; 85598; 85610; 85613; 85670; 85730; 86146; 86147; 86592; 86850; 86900; 86901; 86922; 87070; 87184; 87631; 88262; 88300; 88305; A9270

== ENCOUNTER 2025-04-09 10:09 | Outpatient (CLI) | payer BC, SELFPAY | END 2025-04-09 10:10 | disposition home or self-care (01) | LOC: NFLDREF 10:11 | PROVIDERS: Visit Provider Obstetrics & Gynecology | DX: N97.0 Female infertility associated with anovulation (principal) | CPT/HCPCS: 84443 ==

== ENCOUNTER 2025-05-28 14:10 | Outpatient (CLI) | payer BC, SELFPAY | END 2025-05-28 14:11 | disposition home or self-care (01) | PROVIDERS: Visit Provider Obstetrics & Gynecology | DX: N97.0 Female infertility associated with anovulation (principal) | CPT/HCPCS: 84144 ==